=== PATIENT | female | born 2000 | race American Indian/Alaskan Native ===

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

== ENCOUNTER 2020-01-15 13:13 | Outpatient (CLI) | payer MEDICAID ==
[2020-01-15 13:49] VITALS: BP 103/54
[2020-01-15] MEDS ORDERED: LACTATED RINGERS 1,000 ML IV SCH (14:00)
[2020-01-15 14:12] LABS: Bilirubin,Urine NEG (Negative); Blood,Urine NEG (Negative); Color,Urine Yellow (Yellow); Mucus,Urine 2+ /HPF
[2020-01-15] MEDS ORDERED: LACTATED RINGERS 500 ML IV ONE (14:42)
[2020-01-15] MEDS ORDERED: TERBUTALINE 1 MG/1 ML INJ ONE (14:44)
[2020-01-15] MEDS: TERBUTALINE 1 MG/1 ML INJ SUB-Q SCH ×2 (14:48→15:13)
== END 2020-01-15 16:32 | disposition home or self-care (01) ==
LOC: TRG 13:13 → APU 13:14 → TRG 16:32
PROVIDERS: ATTEND Obstetrics & Gynecology
DX: O62.9 Abnormality of forces of labor, unspecified (principal); Z3A.30 30 weeks gestation of pregnancy
CPT/HCPCS: 59025; 81001; 87086; 96360; 96361; 96372; J3105; J7120; Q0177; 96369

== ENCOUNTER 2020-01-20 16:05 | Inpatient (IN) | payer MEDICAID ==
[2020-01-20] MEDS ORDERED: LACTATED RINGERS 500 ML IV ONE (17:00)
[2020-01-20 17:56] LABS: Bacteria,Urine 1+ /HPF (Negative); Bilirubin,Urine NEG (Negative); Blood,Urine NEG (Negative); Color,Urine Yellow (Yellow); Mucus,Urine FEW /HPF; Protein,Urine <15 mg/dL mg/dL (Negative); Urobilinogen,Urine < 2.0 mg/dL (<2.0)
[2020-01-20] MEDS ORDERED: LACTATED RINGERS 1,000 ML IV ONE (20:04)
[2020-01-20] MEDS ORDERED: NIFEdipine*For Tocolysis only* 10 MG CAPSULE PO ONE (20:19)
[2020-01-20] MEDS ORDERED: ONDANSETRON 4 MG/2 ML INJ IV PRN (20:46)
[2020-01-20] MEDS ORDERED: ACETAMINOPHEN 325 MG TAB PO PRN (20:46)
[2020-01-20] MEDS ORDERED: DOCUSATE SODIUM 100 MG CAP PO PRN (20:46)
[2020-01-20] MEDS ORDERED: MAGNESIUM SULFATE 4 GM/100 ML BAG IV ONE (20:55)
[2020-01-20] MEDS ORDERED: ZOLPIDEM 5 MG TAB PO PRN (20:58)
[2020-01-20] MEDS ORDERED: MAGNESIUM SULFATE 40GM/1000ML 40 GM/1,000 ML BAG IV SCH (21:00)
[2020-01-20] MEDS: BETAMET ACET/BETAMET NA PH 6 MG/ML INJ 5 ML MDV IM SCH (21:50)
[2020-01-20] MEDS: LACTATED RINGERS 1,000 ML IV SCH (22:33)
[2020-01-20] MEDS: fentaNYL 100 MCG/2 ML INJ IV PRN (22:55)
[2020-01-21 01:41] LABS: Basophils % (Auto) 0.1 % (0.0-1.8); Eosinophils % (Auto) 0.1 % (0.0-4.3); Hematocrit 30.9 % (30.3-42.9); Hemoglobin 10.2 gm/dl (10.1-14.3); Lymphocytes # (Auto) 1.2 K/mm3 (1.2-5.4); Lymphocytes % (Auto) 14.9 % (13.4-35.0); Mean Corpuscular HGB Conc 33 % (30-34); Mean Corpuscular Volume 91 fl (79-97); Monocytes # (Auto) 0.2 K/mm3 (0.0-0.8); Platelet Count 243 K/mm3 (140-440); Red Blood Count 3.39 M/mm3 (3.65-5.03); Red Cell Distribution Width 15.2 % (13.2-15.2)
[2020-01-21] MEDS: fentaNYL 100 MCG/2 ML INJ IV PRN ×3 (06:55→21:47)
--- NOTE | 2020-01-21 08:29 | History and Physical Report ---
History of Present Illness Date of examination: 01/21/20 Date of admission: 01/20/20 20:47 Chief complaint: Contractions History of present illness: 19-year-old -0-1-1 at 31+0 weeks who presents with a complaint of regular uterine contractions. The patient was evaluated in triage and had cervical change 2 cm. She was admitted for magnesium sulfate therapy and steroid treatment. The patient reports adverse reaction to terbutaline in the past and declined the use of the medication. She denies any leakage of fluid or any vaginal bleeding. Past History Past Medical History: no pertinent history Past Surgical History: no surgical history Social history: single - Obstetrical History Expected Date of Delivery: 03/24/20 Actual Gestation: 31 Week(s) 0 Day(s) : 3 Para: 1 Hx # Term Pregnancies: 1 Number of Pregnancies: 0 Spontaneous Abortions: 1 Induced : 0 Number of Living Children: 1 Medications and Allergies Allergies Allergy/AdvReac Type Severity Reaction Status Date / Time terbutaline AdvReac Hives Verified 01/20/20 18:25 Home Medications Medication Instructions Recorded Confirmed Last Taken Type Plus Tablet 1 tab PO DAILY 11/09/18 01/20/20 01/18/20 00:00 History Active Meds: Active Medications Acetaminophen (Tylenol) 650 mg PO Q4H PRN PRN Reason: Pain MILD(1-3)/Fever >100.5/PÉREZ Betamethasone Acet/Betameth SodPhos (Celestone Soluspan) 12 mg IM Q24H CHARMAINE Stop: 01/21/20 21:01 Last Admin: 01/20/20 21:50 Dose: 12 mg Documented by: Docusate Sodium (Colace) 100 mg PO Q12H PRN PRN Reason: Constipation Famotidine (Pepcid) 20 mg PO BID CHARMAINE Fentanyl (Sublimaze) 100 mcg IV Q2H PRN PRN Reason: Pain,Severe (7-10) LABOR PAIN Last Admin: 01/21/20 06:55 Dose: 100 mcg Documented by: Lactated Ringer's (Lactated Ringers) 1,000 mls @ 125 mls/hr IV DIRECT CHARMAINE Last Admin: 01/20/20 22:33 Dose: 75 mls/hr Documented by: Magnesium Sulfate (Magnesium Sulfate 40gm/1000ml) 40 gm in 1,000 mls @ 50 mls/hr IV DIRECT CHARMAINE Last Admin: 01/20/20 22:20 Dose: 2 gm/hr, 50 mls/hr Documented by: Multivitamins/Iron/Calcium ( Vitamin) 1 each PO QDAY [facility] Ondansetron HCl (Zofran) 4 mg IV Q6H PRN PRN Reason: Nausea And Vomiting Zolpidem Tartrate (Ambien) 5 mg PO QHS PRN PRN Reason: Sleep Review of Systems All systems: negative Genitourinary: pelvic pain, contractions, no vaginal bleeding, no leakage of fluid - Vital Signs Vital signs: Vital Signs Temp Pulse Resp BP Pulse Ox 98.8 F 72 18 104/61 100 01/20/20 17:50 01/20/20 17:50 01/20/20 17:50 01/20/20 17:50 01/20/20 17:50 Temp Pulse Resp BP Pulse Ox 97.8 F 74 18 115/59 100 01/21/20 04:04 01/21/20 07:03 01/20/20 17:50 01/21/20 07:03 01/21/20 05:41 - Physical Exam Breasts: Positive: deferred Cardiovascular: Regular rate Lungs: Positive: Clear to auscultation Abdomen: Positive: normal appearance - Obstetrical Cervical Dilatation: 2 Results Result Diagrams: 01/21/20 00:37 Abnormal lab results 01/20/20 01/21/20 01/21/20 Range/Units Unknown 00:37 05:48 RBC 3.39 L (3.65-5.03) M/mm3 Seg Neutrophils % 82.9 H (40.0-70.0) % Magnesium 5.40 H (1.7-2.3) mg/dL Urine pH 8.0 H (5.0-7.0) All other labs normal. Assessment and Plan - Patient Problems (1) labor Current Visit: Yes Status: Acute Plan to address problem: Complete magnesium sulfate therapy and steroid treatment Expectant management
[2020-01-21] MEDS: FAMOTIDINE 20 MG TAB PO SCH ×2 (11:17→21:53)
[2020-01-21] MEDS: PRENATAL VIT27-FE FUMARATE-FOLIC ACID VIT TAB PO SCH (11:17)
[2020-01-21] MEDS: BETAMET ACET/BETAMET NA PH 6 MG/ML INJ 5 ML MDV IM SCH (21:45)
[2020-01-22] MEDS: PRENATAL VIT27-FE FUMARATE-FOLIC ACID VIT TAB PO SCH (10:55)
[2020-01-22] MEDS: fentaNYL 100 MCG/2 ML INJ IV PRN (14:35)
[2020-01-22] MEDS: LACTATED RINGERS 1,000 ML IV SCH (14:35)
[2020-01-22] MEDS: FAMOTIDINE 20 MG TAB PO SCH ×2 (14:37→23:46)
--- NOTE | 2020-01-22 17:23 | Progress Note ---
Assessment and Plan A: IUP at 31w1d admitted for labor s/p two dose of betamethasone and magnesium sulfate for tocolysis and neuroprotection Cervix now 3 cm P: Continue observation off magnesium sulfate for further cervical progression. Discontinue IV pain medication Subjective - Subjective Date of service: 01/22/20 Principal diagnosis: IUP at 31w1d, labor Interval history: Pt continues to report contractions, irregularly. She continues to ask for fentanyl because she feels it stops her contractions. Patient reports: no new complaints Objective - Vital Signs Vital Signs: Vital Signs - 12hr 01/22/20 01/22/20 01/22/20 05:51 08:17 08:18 Pulse Rate 64 70 74 Blood Pressure 95/55 115/62 O2 Sat by Pulse 100 Oximetry 01/22/20 01/22/20 01/22/20 08:23 08:28 08:33 Pulse Rate 79 85 78 Blood Pressure O2 Sat by Pulse 100 100 92 Oximetry 01/22/20 01/22/20 01/22/20 08:38 08:43 08:46 Pulse Rate 72 72 75 Blood Pressure O2 Sat by Pulse 80 L 88 82 L Oximetry 01/22/20 01/22/20 01/22/20 08:48 08:53 08:58 Pulse Rate 85 81 77 Blood Pressure O2 Sat by Pulse 98 100 98 Oximetry 01/22/20 01/22/20 01/22/20 09:03 09:08 09:13 Pulse Rate 73 92 H 75 Blood Pressure O2 Sat by Pulse 100 100 100 Oximetry 01/22/20 01/22/20 01/22/20 09:18 09:23 09:28 Pulse Rate 84 80 85 Blood Pressure O2 Sat by Pulse 100 100 100 Oximetry 01/22/20 01/22/20 01/22/20 09:33 09:38 09:43 Pulse Rate 84 78 86 Blood Pressure O2 Sat by Pulse 100 100 100 Oximetry 01/22/20 01/22/20 01/22/20 09:48 09:53 09:56 Pulse Rate 76 83 83 Blood Pressure O2 Sat by Pulse 99 100 87 Oximetry 01/22/20 01/22/20 01/22/20 09:58 14:26 14:31 Pulse Rate 76 65 61 Blood Pressure O2 Sat by Pulse 100 99 100 Oximetry 01/22/20 01/22/20 01/22/20 14:36 14:41 14:46 Pulse Rate 59 L 58 L 87 Blood Pressure O2 Sat by Pulse 99 98 97 Oximetry 01/22/20 01/22/20 01/22/20 14:51 14:56 15:01 Pulse Rate 64 68 69 Blood Pressure O2 Sat by Pulse 99 98 100 Oximetry 01/22/20 01/22/20 01/22/20 15:06 15:11 16:53 Pulse Rate 53 L 63 60 Blood Pressure O2 Sat by Pulse 98 99 96 Oximetry 01/22/20 01/22/20 01/22/20 16:58 17:03 17:08 Pulse Rate 61 65 60 Blood Pressure O2 Sat by Pulse 100 100 99 Oximetry 01/22/20 01/22/20 17:13 17:18 Pulse Rate 57 L 54 L Blood Pressure O2 Sat by Pulse 99 100 Oximetry - Exam Breasts: deferred Abdomen: Present: soft (gravid ) Uterus: Present: normal FHR: auscultation normal Uterine Contraction Monitor Mode: External Cervical Dilatation: 3 Cervical Effacement Percentage: 50 station: -3 Uterine Contraction Pattern: Irregular Uterine Tone Measurement Phase: Resting Uterine Contraction Intensity: Mild Extremities: normal - Labs Labs: Abnormal Labs 01/20/20 01/21/20 01/21/20 Unknown 00:37 05:48 RBC 3.39 L Seg Neutrophils % 82.9 H Magnesium 5.40 H Urine pH 8.0 H Coronavirus (PCR) 01/21/20 01/21/20 09:17 12:00 RBC Seg Neutrophils % Magnesium 5.80 H Urine pH Coronavirus (PCR) Positive A
--- NOTE | 2020-01-23 07:34 | Progress Note ---
Assessment and Plan A: IUP at 31w2d admitted for labor s/p two dose of betamethasone and magnesium sulfate for tocolysis and neuroprotection Cervix now 3 cm Coronavirus positive P: Continue observation off magnesium sulfate for further cervical progression. Discontinue IV pain medication Subjective - Subjective Date of service: 01/23/20 Principal diagnosis: IUP at 31w2d, labor Interval history: Pt continues to feel irregular contractions. Patient reports: no new complaints Objective - Exam Breasts: deferred Abdomen: Present: soft (gravid ) Uterus: Present: normal (gravid ) FHR: auscultation normal Uterine Contraction Monitor Mode: External Cervical Dilatation: 3 Uterine Contraction Pattern: Irregular Uterine Tone Measurement Phase: Resting Uterine Contraction Intensity: Mild - Labs Labs: Abnormal Labs 01/20/20 01/21/20 01/21/20 Unknown 00:37 05:48 RBC 3.39 L Seg Neutrophils % 82.9 H Magnesium 5.40 H Urine pH 8.0 H Coronavirus (PCR) 01/21/20 01/21/20 09:17 12:00 RBC Seg Neutrophils % Magnesium 5.80 H Urine pH Coronavirus (PCR) Positive A
[2020-01-23 07:55] VITALS: BP 85/46
[2020-01-23] MEDS: PRENATAL VIT27-FE FUMARATE-FOLIC ACID VIT TAB PO SCH (09:57)
[2020-01-23] MEDS: FAMOTIDINE 20 MG TAB PO SCH (09:57)
--- NOTE | 2020-01-23 10:24 | Discharge Summary ---
Providers - Providers Date of Admission: 01/20/20 20:47 Date of discharge: 01/23/20 Attending physician: URIEL ALLEN Primary care physician: URIEL ALLEN Hospitalization Reason for admission: labor Procedure details: IV magnesium sulfate for neuroprotection and tocolysis Two doses of betamethasone Hospital course: Pt was admitted for labor and change to two centimeters. She received two doses of betamethasone and IV magnesium for tocolysis and neuroprotection. Through [facility] coronovirus screening, the patient was diagnosed with Coronavirus on 01/21/20. She changed to 2.5-3 cm and arrested there for over 12 hours without tocolytics. The patient had no cervical jacket changer 16 hours of observation. She met discharge criteria. She was given labor precautions and instructed to quarantine for a total of 14 days after diagnosis, and not to return ot the office until she has a negative coronavirus test. Condition at discharge: Stable Disposition: DC- TO HOME OR SELFCARE - Discharge Diagnoses (1) 2019 novel coronavirus detected Status: Acute (2) Status: Acute Qualifiers: Weeks of gestation: 31 weeks Qualified Code(s): Z3A.31 - 31 weeks gestation of (3) labor Status: Acute Qualifiers: labor trimester: third trimester labor delivery status: without delivery Qualified Code(s): O60.03 - labor without delivery, third trimester Plan - Provider Discharge Summary Activity: no sex for 6 weeks, no heavy lifting 4 weeks, no strenuous exercise Diet: routine Instructions: routine Additional instructions: [] Smoking cessation referral if applicable(refer to patient education folder for contact #) [] Refer to [facility]'s [facility] Booklet Call your doctor immediately for: * Fever > 100.5 * Heavy vaginal bleeding ( >1 pad per hour) * Severe persistent headache * Shortness of breath * Reddened, hot, painful area to leg or breast * Drainage or odor from incision. * Keep incision clean and dry at all times and follow doctor's instructions regarding bathing/showering - Follow up plan Follow up: URIEL ALLEN MD [Primary Care Provider] - 02/08/20 (please schedule an appt after February 04, 2020 after documenting a negative coronavirus test )
== END 2020-01-23 11:50 | disposition home or self-care (01) | DRG 781 ==
LOC: TRG 16:05 → APU 16:05 → TRG 20:46 → LD 20:47
PROVIDERS: ADMIT Obstetrics & Gynecology; ATTEND Obstetrics & Gynecology
DX: O98.513 Other viral diseases complicating pregnancy, third trimester (principal); O60.03 Preterm labor without delivery, third trimester; Z3A.31 31 weeks gestation of pregnancy; Z88.8 Allergy status to other drugs, medicaments and biological substances; Z53.29 Procedure and treatment not carried out because of patient's decision for other reasons; U07.1 COVID-19
CPT/HCPCS: 36415; 81001; 83735; 85025; 86592; 86850; 86900; 86901; G0378; J0702; J2405; J3010; J3475; J7120; U0003-CS

== ENCOUNTER 2020-02-05 08:52 | Outpatient (CLI) | payer MEDICAID ==
[2020-02-05 10:02] VITALS: BP 107/56
[2020-02-05] MEDS ORDERED: LACTATED RINGERS 500 ML IV ONE (10:02)
[2020-02-05 10:17] LABS: Bilirubin,Urine NEG (Negative); Blood,Urine NEG (Negative); Color,Urine Yellow (Yellow); Mucus,Urine FEW /HPF; Protein,Urine <15 mg/dL mg/dL (Negative); Urobilinogen,Urine < 2.0 mg/dL (<2.0)
--- NOTE | 2020-02-05 11:17 | Ultrasound Report ---
ULTRASOUND OBSTETRIC LIMITED INDICATION / CLINICAL INFORMATION: cathy. TECHNIQUE: Transabdominal ultrasound imaging. COMPARISON: None available. FINDINGS: HEART RATE (beats per minute): 144 AMNIOTIC FLUID INDEX (cm) = 8.4 PRESENTATION: Cephalic. ADDITIONAL FINDINGS: None. IMPRESSION: CATHY measures 8.4 cm Signer Name: Jacky Michel Jr, MD Signed: 02/05/2020 11:12 AM Workstation Name: [id number]
== END 2020-02-05 12:07 | disposition home or self-care (01) ==
LOC: TRG 08:52 → APU 09:11 → TRG 12:07
PROVIDERS: ATTEND Obstetrics & Gynecology
DX: O62.9 Abnormality of forces of labor, unspecified (principal); Z3A.33 33 weeks gestation of pregnancy
CPT/HCPCS: 59025; 76815; 81001; 96360; 96361

== ENCOUNTER 2020-02-07 05:27 | Inpatient (IN) | payer MEDICAID ==
[2020-02-07] MEDS ORDERED: LACTATED RINGERS 1,000 ML ONE (05:37)
[2020-02-07] MEDS ORDERED: BETAMET ACET/BETAMET NA PH 6 MG/ML INJ 5 ML MDV IM ONE (05:42)
[2020-02-07] MEDS ORDERED: AMPICILLIN/NS 2 GM/100 ML 2 GM/100 ML BAG IV ONE ×3 (05:42→06:00)
[2020-02-07] MEDS ORDERED: AMPICILLIN 2 GM in SODIUM CHLORIDE 0.9% 50 ML IV ONE (05:49)
[2020-02-07] MEDS ORDERED: fentaNYL 100 MCG/2 ML INJ IV PRN (05:59)
[2020-02-07] MEDS ORDERED: TERBUTALINE 1 MG/1 ML INJ SUB-Q PRN (05:59)
[2020-02-07] MEDS ORDERED: ONDANSETRON 4 MG/2 ML INJ IV PRN ×3 (05:59→10:14)
[2020-02-07] MEDS ORDERED: NALOXONE 0.4 MG/1 ML INJ IV PRN (05:59)
[2020-02-07] MEDS ORDERED: BUTORPHANOL 2 MG/1 ML INJ IV PRN (05:59)
[2020-02-07] MEDS ORDERED: ePHEDrine SULFATE 50 MG/1 ML INJ IV PRN ×2 (05:59→07:32)
[2020-02-07] MEDS ORDERED: MINERAL OIL 30 ML ORAL LIQD PO PRN (05:59)
[2020-02-07] MEDS ORDERED: LIDOCAINE (2%) 20 MG/1 ML VIAL 20 ML MDV INFILTRATI ONE (05:59)
[2020-02-07] MEDS ORDERED: ACETAMINOPHEN 325 MG TAB PO PRN ×2 (05:59→10:14)
[2020-02-07] MEDS ORDERED: OXYTOCIN DRIP 30 UNITS/500 ML BAG IV SCH (06:00)
[2020-02-07] MEDS ORDERED: OXYTOCIN 20 UNIT/1000ML DRIP 20 UNITS/1,000 ML BAG IV SCH ×2 (06:00→10:14)
[2020-02-07] MEDS ORDERED: BETAMET ACET/BETAMET NA PH 6 MG/ML INJ 5 ML MDV IM SCH (06:00)
[2020-02-07] MEDS ORDERED: LACTATED RINGERS 1,000 ML IV SCH ×2 (06:00)
[2020-02-07] MEDS ORDERED: MAGNESIUM SULFATE 4 GM/100 ML BAG IV ONE (06:02)
[2020-02-07] MEDS ORDERED: MAGNESIUM SULFATE 2 GM/50 ML BAG IV ONE (06:02)
[2020-02-07] MEDS ORDERED: MAGNESIUM SULFATE 40GM/1000ML 0 GM/0 ML BAG IV ONE (06:05)
--- NOTE | 2020-02-07 06:30 | History and Physical Report ---
History of Present Illness Date of examination: 02/07/20 Date of admission: 02/07/20 05:37 Chief complaint: my water broke, contractions History of present illness: Pt is a 19 year old JESU 03/24/20 at 33w3d who presents with rupture of membranes at 4:30 this morning and regular painful contractions. Her cervix was noted to be 4/90/-2 on admission. She has had limited care at [facility] since 20 wks consisting of two visits (one in November and one in January) complicated by labor s/p admission with arrest at 2.5-3 cm and s/p two doses of betamethasone and magnesium sulfate for tocolysis and neuroprotection at that time. She was also diagnosed with Coronavirus on 01/21/20, but she has been asymptomatic throughout. Her GBS status is unknown. She also tested positive for gonorrhea, chlamydia and trichomonas on 09/02/19 and treated in November 2019 without test of cure. Past History Past Medical History: no pertinent history Past Surgical History: no surgical history AUTOMOTIVE WINDOW TINTER History: chlamydia (treated 11/10), gonorrhea (treated 11/10), herpes, trichomonas (treated 11/10 ) Family/Genetic History: none Social history: no significant social history - Obstetrical History Expected Date of Delivery: 03/24/20 Actual Gestation: 33 Week(s) 3 Day(s) : 3 Para: 1 Hx # Term Pregnancies: 1 Number of Pregnancies: 0 Spontaneous Abortions: 1 Induced : 0 Number of Living Children: 1 Medications and Allergies Allergies Allergy/AdvReac Type Severity Reaction Status Date / Time terbutaline AdvReac Hives Unverified 02/07/20 05:38 Home Medications Medication Instructions Recorded Confirmed Last Taken Type Plus Tablet 1 tab PO DAILY 11/09/18 02/07/20 01/18/20 00:00 History Active Meds: Active Medications Acetaminophen (Tylenol) 650 mg PO Q4H PRN PRN Reason: Pain, Mild (1-3) Betamethasone Acet/Betameth SodPhos (Celestone Soluspan) 12 mg IM Q24H CHARMAINE Stop: 02/08/20 06:01 Last Admin: 02/07/20 06:11 Dose: 12 mg Documented by: Butorphanol Tartrate (Stadol) 2 mg IV Q2H PRN PRN Reason: Pain , Severe (7-10) Ephedrine Sulfate (Ephedrine Sulfate) 10 mg IV Q2M PRN PRN Reason: Hypotension Fentanyl (Sublimaze) 100 mcg IV Q2H PRN PRN Reason: Pain,Severe (7-10) LABOR PAIN Last Admin: 02/07/20 06:15 Dose: 100 mcg Documented by: Lactated Ringer's (Lactated Ringers) 1,000 mls @ 125 mls/hr IV DIRECT CHARMAINE Last Admin: 02/07/20 06:14 Dose: 125 mls/hr Documented by: Oxytocin/Sodium Chloride (Pitocin/Ns 30 Unit/500ml) 30 units in 500 mls @ 2 mls/hr IV TITR CHARMAINE; Protocol Lactated Ringer's (Lactated Ringers) 1,000 mls @ 125 mls/hr IV DIRECT CHARMAINE Oxytocin/Sodium Chloride (Pitocin/Ns 20 Unit/1000ml Drip) 20 units in 1,000 mls @ 125 mls/hr IV DIRECT CHARMAINE Ampicillin Sodium (Ampicillin/Ns 1 Gm/50 Ml) 1 gm in 50 mls @ 100 mls/hr IV Q4HR CHARMAINE; Protocol Magnesium Sulfate (Magnesium Sulfate 2gm/50ml) 2 gm in 50 mls @ 25 mls/hr IV ONCE ONE Stop: 02/07/20 08:01 Mineral Oil (Mineral Oil) 30 ml PO QHS PRN PRN Reason: Constipation Naloxone HCl (Naloxone) 0.1 mg IV Q2MIN PRN PRN Reason: Res Rate </= 8 or 02 SAT < 92% Ondansetron HCl (Zofran) 4 mg IV Q8H PRN PRN Reason: Nausea And Vomiting Review of Systems All systems: negative - Vital Signs Vital signs: Vital Signs Pulse BP Pulse Ox 106 H 115/71 99 02/07/20 05:33 02/07/20 05:33 02/07/20 05:33 Temp Pulse Resp BP Pulse Ox 98.5 F 81 18 115/71 100 02/07/20 05:36 02/07/20 06:28 02/07/20 06:15 02/07/20 05:36 02/07/20 06:28 - Physical Exam Breasts: Positive: deferred Abdomen: Positive: soft (gravid ) Genitourinary (Female): Positive: normal external genitalia Uterus: Positive: enlarged (gravid ) - Obstetrical FHR: auscultation normal Uterine Contraction Monitor Mode: External Cervical Dilatation: 4.5 Cervical Effacement Percentage: 90 station: -2 Uterine Contraction Pattern: Regular Uterine Tone Measurement Phase: Resting Uterine Contraction Intensity: Strong/Firm Results Result Diagrams: 02/07/20 Unknown All other labs normal. 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
[2020-02-07 06:53] LABS: Hematocrit 33.1 % (30.3-42.9); Mean Corpuscular HGB Conc 33 % (30-34); Mean Corpuscular Volume 92 fl (79-97); Platelet Count 253 K/mm3 (140-440); Red Cell Distribution Width 15.7 % (13.2-15.2)
[2020-02-07] MEDS ORDERED: NalbUPHINE 10 MG/1 ML INJ IV PRN (07:32)
--- NOTE | 2020-02-07 07:34 | Anesthesia Consultation ---
Anesthesia Consult and Med Hx Date of service: 02/07/20 - Airway Anesthetic Teeth Evaluation: Good ROM Head & Neck: Adequate Mental/Hyoid Distance: Adequate Mallampati Class: Class I Intubation Access Assessment: Good - Pulmonary Exam CTA: Yes - Cardiac Exam Cardiac Exam: RRR - Pre-Operative Health Status ASA Pre-Surgery Classification: ASA2 Proposed Anesthetic Plan: Epidural - Pulmonary Hx Smoking: No Hx Asthma: No COPD: No Hx Pneumonia: No Hx Sleep Apnea: No - Cardiovascular System Hx Hypertension: No - Central Nervous System Hx Seizures: No Hx Psychiatric Problems: No - Gastrointestinal Hx Gastroesophageal Reflux Disease: No - Endocrine Hx Renal Disease: No Hx End Stage Renal Disease: No Hx Hypothyroidism: No Hx Hyperthyroidism: No - Hematic Hx Anemia: No Hx Sickle Cell Disease: No - Other Systems Hx Alcohol Use: No
--- NOTE | 2020-02-07 07:35 | Progress Note ---
Labor Epidural - Labor Epidural Start Time: 07:15 Stop Time: 07:30 Performed by:: MILADYS GONZALEZ Procedure: Patient is requesting a laboring epidural for laboring pain. Patient IDed, H&P reviewed, all questions and concerns were answered, and consent was signed. Timeout was performed at bedside. Patient in sitting position. Sterile prep and drape was performed. 3ml of 1% lidocaine skin wheal at L[3]- L [4]. 18- gauge Touhy epidural needle was advanced to loss of resistance with air technique. Negative CSF negative blood. Epidural catheter advanced to [12] centimeters. [-] Aspiration [-] test dose. Sterile dressing applied. Patient tolerated procedure.
[2020-02-07] MEDS ORDERED: METHYLERGONOVINE MALEATE 0.2 MG/ML VIAL IM ONE ×2 (07:48)
[2020-02-07] MEDS ORDERED: fentaNYL-BUPIV 2 MCG/ML-0.125% 200 MCG/100 ML BAG EPIDURAL SCH (08:00)
[2020-02-07] MEDS ORDERED: diphenhydrAMINE 50 MG/ML VIAL IV PRN (08:00)
--- NOTE | 2020-02-07 08:44 | Procedure Note ---
OB Delivery Note - Delivery Date of Delivery: 02/07/20 Surgeon: SHANNON BURROWS Estimated blood loss: 500cc - Vaginal Delivery presentation: vertex Delivery position: OA Intrapartum events: labor-<37 weeks, PROM->1hr before delivery, decreased FHT variability, mult.variable deceleratio, uterine atony (s/p Metherigine ) Delivery induction: none Delivery monitor: external FHT, external uterine Route of delivery: Delivery placenta: spontaneous Episiotomy: none Delivery laceration: none Anesthesia: epidural - Infant A at 1 minute: 8 at 5 minutes: 9 Infant Gender: Male (1809g (4lb 0oz) @ 0736 am)
[2020-02-07] MEDS ORDERED: AMPICILLIN/NS 1 GM/50 ML 1 GM/50 ML BAG IV SCH (10:01)
[2020-02-07] MEDS: HYDROcodone/ACETAMINOPHEN 5-325 MG TAB PO PRN ×2 (10:34→18:10)
[2020-02-07] MEDS: IBUPROFEN 600 MG TAB PO SCH ×3 (10:42→23:32)
[2020-02-07] MEDS ORDERED: BENZOCAINE/MENTHOL 20/0.5% TOP SPRAY 56 GM TP PRN (11:00)
[2020-02-07] MEDS ORDERED: diphenhydrAMINE 50 MG/ML VIAL IV ONE (11:00)
[2020-02-07] MEDS ORDERED: PROMETHAZINE 25 MG TAB PO PRN (11:30)
[2020-02-07] MEDS ORDERED: LANOLIN/ZINC/DIMETHICONE (LANSINOH) 7 GM TP PRN ×2 (11:30)
[2020-02-07] MEDS ORDERED: WITCH HAZEL/ GLYCERIN PAD TP PRN (11:30)
[2020-02-07] MEDS ORDERED: PROMETHAZINE 25 MG RECT SUPP PR PRN (11:30)
[2020-02-07] MEDS: FERROUS SULFATE 325 MG TAB PO SCH ×2 (12:30→23:32)
--- NOTE | 2020-02-07 13:37 | Post Anesthesia Evaluation ---
- Post Anesthesia Evaluation Patient Participated: Yes Airway Patent: Yes Stable Respiratory Function: Yes Nausea/Vomiting: No Temp > 96.8F: Yes Pain Manageable: Yes Adequeate Hydration: Yes Anesthesia Complications: No Block Receding Appropriately: Yes Patient on Ventilator: No Other Comments: Pt c/o itching, likely d/t IV narcotics she may have received from the nursing staff since she never received any epidural fentanyl. Pt's RN advised to treat with benadryl.
[2020-02-07] MEDS: diphenhydrAMINE 25 MG CAP PO PRN ×2 (16:08→23:32)
[2020-02-07 21:51] LABS: Hematocrit 28.3 % (30.3-42.9); Hemoglobin 9.4 gm/dl (10.1-14.3)
[2020-02-07] MEDS ORDERED: MAGNESIUM HYDROXIDE (MOM) ORAL LIQD UDC PO PRN (22:00)
[2020-02-08] MEDS: IBUPROFEN 600 MG TAB PO SCH ×4 (05:00→23:38)
--- NOTE | 2020-02-08 08:23 | Progress Note ---
Assessment and Plan A: PPD#1 s/p at 33 wks H/o Coronavirus on 01/21/20 without repeat test P: Coronavirus test today Routine care Subjective - Subjective Date of service: 02/08/20 Principal diagnosis: s/p at 33 wks Interval history: Pt feeling better today. Desires Coronavirus testing today. Patient reports: appetite normal, voiding normally, pain well controlled, ambulating normally [place]: in NICU Objective - Vital Signs Latest vital signs: Vital Signs Temp Pulse Resp BP Pulse Ox 02/08/20 05:05 98.5 F 83 98 02/08/20 05:02 18 98/59 02/07/20 23:35 97.8 F 68 18 110/43 98 02/07/20 19:48 98.4 F 60 18 102/53 98 02/07/20 16:06 98.3 F 69 20 101/56 98 02/07/20 09:40 98.1 F 64 20 111/65 100 02/07/20 08:45 81 94 02/07/20 08:44 72 91 02/07/20 08:40 74 100 02/07/20 08:35 70 100 02/07/20 08:31 82 116/72 02/07/20 08:30 78 99 02/07/20 08:25 77 98 Intake and Output 02/07/20 02/08/20 02/08/20 22:59 06:59 14:59 Intake Total 320 150 Balance 320 150 Intake: Intake, Free Water 320 150 Other: # Voids Void 1 1 - Exam Breasts: Present: deferred Abdomen: Present: soft Uterus: Present: fundal height at umbilicus Extremities: Present: normal - Labs Labs: Abnormal lab results 02/07/20 Range/Units 21:26 Hgb 9.4 L (10.1-14.3) gm/dl Hct 28.3 L (30.3-42.9) %
[2020-02-08] MEDS ORDERED: MEASLES, MUMPS & RUBELLA 12,500 UNIT/0.5 ML VACCINE SUB-Q ONE (09:05)
[2020-02-08] MEDS ORDERED: DIPHtheria,PERTUSSIS(ACELL),TETANUS VACCINE/PF 0.5 ML VIAL IM ONE (09:05)
[2020-02-08] MEDS: FERROUS SULFATE 325 MG TAB PO SCH ×2 (12:18→23:38)
[2020-02-08] MEDS: HYDROcodone/ACETAMINOPHEN 5-325 MG TAB PO PRN (17:29)
[2020-02-08] MEDS: diphenhydrAMINE 25 MG CAP PO PRN (22:48)
[2020-02-09] MEDS: HYDROcodone/ACETAMINOPHEN 5-325 MG TAB PO PRN (01:52)
[2020-02-09] MEDS: IBUPROFEN 600 MG TAB PO SCH ×2 (06:49→12:22)
--- NOTE | 2020-02-09 08:10 | Progress Note ---
Assessment and Plan A: PPD1 s/p PTD @ 33wks. H&H ordered. P:Discharge today pending H&H results . Subjective - Subjective Date of service: 02/09/20 Principal diagnosis: s/p at 33 wks Interval history: PPD2 s/p PTD @ 33wks. Pt has no complaints. Requesting to go home today. Patient reports: appetite normal : in NICU Objective - Vital Signs Latest vital signs: Vital Signs Temp Pulse Resp BP Pulse Ox 02/09/20 01:34 97.8 F 80 20 103/65 99 02/08/20 15:46 97.7 F 96 H 20 104/53 97 02/08/20 08:17 98.0 F 61 16 96/49 99 Intake and Output 02/08/20 02/09/20 02/09/20 23:59 07:59 15:59 Intake Total 240 Balance 240 Intake: Oral 240 Other: Total, Intake Amount 240 # Voids Void 1 - Exam Breasts: Present: deferred Abdomen: Present: normal appearance Uterus: Present: firm, fundal height below umbilicus
--- NOTE | 2020-02-09 08:13 | Discharge Summary ---
Providers - Providers Date of Admission: 02/07/20 05:37 Date of discharge: 02/09/20 Attending physician: SHANNON BURROWS 02/07/20 10:14 Consult to Reshipping Clerk [CONS] Routine Reason For Exam: assistance with , SNS Primary care physician: SHANNON BURROWS Hospitalization Reason for admission: active labor () Delivery: Episiotomy: none Laceration: none Other procedures: none Discharge diagnosis: delivery [place] baby: male Condition at discharge: Good Disposition: DC-01 TO HOME OR SELFCARE Plan - Discharge Medications Prescriptions: Ferrous Sulfate [Feosol 325 MG tab] 325 mg PO BID #60 tablet Ibuprofen [Motrin] 800 mg PO Q8HR PRN #30 tablet PRN Reason: Pain, Moderate (4-6) HYDROcodone/APAP 5-325 [[place] 5/325] 1 each PO Q6HR PRN #20 tablet PRN Reason: Pain - Provider Discharge Summary Activity: no sex for 6 weeks, no heavy lifting 4 weeks, no strenuous exercise Diet: routine Instructions: routine Additional instructions: [] Smoking cessation referral if applicable(refer to patient education folder for contact #) [] Refer to [facility]'s [facility] Booklet Call your doctor immediately for: * Fever > 100.5 * Heavy vaginal bleeding ( >1 pad per hour) * Severe persistent headache * Shortness of breath * Reddened, hot, painful area to leg or breast * Drainage or odor from incision. * Keep incision clean and dry at all times and follow doctor's instructions regarding bathing/showering - Follow up plan Follow up: SHANNON BURROWS MD [Primary Care Provider] - 14 Days
[2020-02-09] MEDS: FERROUS SULFATE 325 MG TAB PO SCH (12:21)
[2020-02-09 12:31] VITALS: BP 117/75
== END 2020-02-09 13:00 | disposition home or self-care (01) | DRG 774 ==
LOC: TRG 05:27 → LD 05:28 → TRG 05:35 → LD 05:37 → OB 09:32
PROVIDERS: ADMIT Obstetrics & Gynecology; ATTEND Obstetrics & Gynecology
PROC: 10E0XZZ Delivery of Products of Conception, External Approach (ICD-10-PCS; principal; 2020-02-06)
PROC: 3E0R3BZ Introduction of Anesthetic Agent into Spinal Canal, Percutaneous Approach (ICD-10-PCS; 2020-02-07)
PROC: 00HU33Z Insertion of Infusion Device into Spinal Canal, Percutaneous Approach (ICD-10-PCS; 2020-02-07)
PROC: 3E0234Z Introduction of Serum, Toxoid and Vaccine into Muscle, Percutaneous Approach (ICD-10-PCS; 2020-02-08)
PROC: 3E0134Z Introduction of Serum, Toxoid and Vaccine into Subcutaneous Tissue, Percutaneous Approach (ICD-10-PCS; 2020-02-08)
DX: O60.14X0 Preterm labor third trimester with preterm delivery third trimester, not applicable or unspecified (principal); O98.32 Other infections with a predominantly sexual mode of transmission complicating childbirth; O62.9 Abnormality of forces of labor, unspecified; Z37.0 Single live birth; Z3A.33 33 weeks gestation of pregnancy; Z20.828 Contact with and (suspected) exposure to other viral communicable diseases; A60.09 Herpesviral infection of other urogenital tract
CPT/HCPCS: 36415; 85014; 85018; 85027; 86592; 86850; 86900; 86901; 88307; G0378; J0290; J0702; J1200; J2210; J3010; J3475; J7120; U0003-CS

== ENCOUNTER 2021-03-04 23:17 | Outpatient (CLI) | payer MEDICAID ==
[2021-03-04 23:50] VITALS: BP 110/62
[2021-03-05] MEDS ORDERED: LACTATED RINGERS 1,000 ML IV ONE
[2021-03-05 00:23] LABS: Bacteria,Urine 2+ /HPF (Negative); Mucus,Urine FEW /HPF
[2021-03-05 00:39] LABS: Bilirubin,Urine NEG (Negative); Blood,Urine NEG (Negative); Color,Urine Yellow (Yellow)
[2021-03-05] MEDS ORDERED: metroNIDAZOLE 500 MG TAB PO ONE (01:47)
== END 2021-03-05 01:30 | disposition home or self-care (01) ==
LOC: TRG 23:17 → APU 23:25 → TRG 03-05 01:30
PROVIDERS: ATTEND Obstetrics & Gynecology
DX: Z34.93 Encounter for supervision of normal pregnancy, unspecified, third trimester (principal); Z3A.35 35 weeks gestation of pregnancy
CPT/HCPCS: 36415; 59025; 81001; 84112; 96360; J7120

== ENCOUNTER 2021-03-18 13:31 | Inpatient (IN) | payer MEDICAID ==
[2021-03-18] MEDS ORDERED: LACTATED RINGERS 1,000 ML ONE (14:35)
[2021-03-18] MEDS ORDERED: LACTATED RINGERS 1,000 ML IV ONE (14:51)
[2021-03-18] MEDS ORDERED: ePHEDrine SULFATE 50 MG/1 ML INJ IV PRN ×2 (17:18→18:08)
[2021-03-18] MEDS ORDERED: fentaNYL 100 MCG/2 ML INJ IV PRN (17:18)
[2021-03-18] MEDS ORDERED: OXYTOCIN 10 UNIT/1 ML INJ IM PRN (17:18)
[2021-03-18] MEDS ORDERED: ACETAMINOPHEN 325 MG TAB PO PRN (17:18)
[2021-03-18] MEDS ORDERED: CARBOPROST TROMETHAMINE 250 MCG/1 ML INJ IM PRN (17:18)
[2021-03-18] MEDS ORDERED: METHYLERGONOVINE MALEATE 0.2 MG/ML VIAL IM PRN (17:18)
[2021-03-18] MEDS ORDERED: miSOPROStol 200 MCG TAB PR PRN (17:18)
[2021-03-18] MEDS ORDERED: LOPERAMIDE 2 MG CAP PO PRN (17:18)
[2021-03-18] MEDS ORDERED: MINERAL OIL 30 ML ORAL LIQD PO PRN (17:18)
[2021-03-18] MEDS ORDERED: BUTORPHANOL 2 MG/1 ML INJ IV PRN (17:18)
[2021-03-18 17:33] LABS: Hemoglobin 7.7 gm/dl (10.1-14.3); Mean Corpuscular HGB Conc 32 % (30-34); Mean Corpuscular Volume 77 fl (79-97); Platelet Count 169 K/mm3 (140-440); Red Blood Count 3.12 M/mm3 (3.65-5.03)
[2021-03-18] MEDS: LACTATED RINGERS 1,000 ML IV SCH ×2 (17:43→19:59)
[2021-03-18] MEDS ORDERED: LIDOCAINE (2%) 20 MG/1 ML VIAL 20 ML MDV INFILTRATI ONE (17:45)
[2021-03-18] MEDS ORDERED: OXYTOCIN DRIP 30 UNITS/500 ML BAG IV SCH ×2 (18:00)
[2021-03-18] MEDS ORDERED: AMPICILLIN/NS 2 GM/100 ML 2 GM/100 ML BAG IV ONE (18:00)
[2021-03-18] MEDS ORDERED: NALOXONE 2 MG/2 ML INJ IV PRN (18:08)
--- NOTE | 2021-03-18 18:08 | Anesthesia Consultation ---
Anesthesia Consult and Med Hx Date of service: 03/18/21 - Airway Anesthetic Teeth Evaluation: Good ROM Head & Neck: Adequate Mental/Hyoid Distance: Adequate Mallampati Class: Class II Intubation Access Assessment: Good - Pulmonary Exam CTA: Yes - Cardiac Exam Cardiac Exam: RRR - Pre-Operative Health Status ASA Pre-Surgery Classification: ASA2 Proposed Anesthetic Plan: Epidural - Pulmonary Hx Smoking: No Hx Asthma: No Hx Respiratory Symptoms: No SOB: No COPD: No Home Oxygen Therapy: No Hx Pneumonia: No Hx Sleep Apnea: No - Cardiovascular System Hx Hypertension: No Hx Coronary Artery Disease: No Hx Heart Attack/AMI: No Hx Angina: No Hx Percutaneous Transluminal Coronary Angioplasty (PTCA): No Hx Cardia Arrhythmia: No Hx Pacemaker: No Hx Internal Defibrillator: No Hx Valvular Heart Disease: No Hx Heart Murmur: No Hx Peripheral Vascular Disease: No - Central Nervous System Hx Neuromuscular Disorder: No Hx Seizures: No CVA: No Hx Back Pain: Yes Hx Psychiatric Problems: No - Gastrointestinal Hx Ulcer: No Hx Gastroesophageal Reflux Disease: No - Endocrine Hx Renal Disease: No Hx End Stage Renal Disease: No Hx Cirrhosis: No Hx Liver Disease: No Hx Insulin Dependent Diabetes: No Hx Non-Insulin Dependent Diabetes: No Hx Thyroid Disease: No Hx Hypothyroidism: No Hx Hyperthyroidism: No - Hematic Hx Anemia: No Hx Sickle Cell Disease: No - Other Systems Hx Alcohol Use: No Hx Substance Use: No Hx Cancer: No Hx Obesity: No
--- NOTE | 2021-03-18 19:05 | Progress Note ---
Labor Epidural - Labor Epidural Start Time: 18:18 Stop Time: 18:28 Performed by:: JIL BRITO Procedure: Patient is requesting a laboring epidural for laboring pain. Patient IDed, H&P reviewed, all questions and concerns were answered, and consent was signed. Timeout was performed at bedside. Patient in sitting position. Sterile prep and drape was performed. [3] ml of 1% lidocaine skin wheal at L[3]- L [4]. 18- gauge Touhy epidural needle was advanced to loss of resistance with air technique to 6cm. Negative CSF negative blood via Tuohy needle. #27g Spinal needle clear, free flowing CSF, Pecedex 10 mcg. Epidural catheter advanced to [10] centimeters. [negative] Aspiration [negative] test dose. Sterile dressing applied. Patient tolerated procedure.
[2021-03-18] MEDS: fentaNYL-BUPIV 2 MCG/ML-0.125% 200 MCG/100 ML BAG EPIDURAL SCH (20:00)
--- NOTE | 2021-03-18 20:05 | History and Physical Report ---
History of Present Illness Date of examination: 03/18/21 Date of admission: 03/18/21 13:32 Chief complaint: I'm having contractions History of present illness: Pt is a 20 year old who presents at 37.3 weeks with regular contractions. Pt receives care with [facility]. records are not available for review. Pt had cervical change in triage from 2 to 4 cm with regular contractions and the decision was made to admit for labor.Her GBS is un known. Past History Past Medical History: no pertinent history Past Surgical History: no surgical history Social history: single - Obstetrical History Expected Date of Delivery: 04/04/21 Actual Gestation: 37 Week(s) 5 Day(s) : 4 Para: 2 Number of Living Children: 2 Medications and Allergies Allergies Allergy/AdvReac Type Severity Reaction Status Date / Time terbutaline Allergy Severe Hives Verified 02/07/20 10:38 Home Medications Medication Instructions Recorded Confirmed Last Taken Type Plus Tablet 1 tab PO DAILY 11/09/18 03/18/21 01/18/20 00:00 History Ferrous Sulfate [Feosol 325 MG tab] 325 mg PO BID #60 tablet 02/08/20 03/18/21 Unknown Rx Active Meds: Active Medications Acetaminophen (Acetaminophen 325 Mg Tab) 650 mg PO Q4H PRN PRN Reason: Pain, Mild (1-3) Butorphanol Tartrate (Butorphanol 2 Mg/1 Ml Inj) 2 mg IV Q2H PRN PRN Reason: Pain , Severe (7-10) Carboprost Tromethamine (Carboprost Tromethamine 250 Mcg/1 Ml Inj) 250 mcg IM ONCE PRN PRN Reason: Uterine Bleeding Ephedrine Sulfate (Ephedrine Sulfate 50 Mg/1 Ml Inj) 10 mg IV Q2M PRN PRN Reason: Hypotension Last Admin: 03/18/21 19:03 Dose: 10 mg Documented by: Ephedrine Sulfate (Ephedrine Sulfate 50 Mg/1 Ml Inj) 10 mg IV Q2M PRN PRN Reason: Hypotension Fentanyl (Fentanyl 100 Mcg/2 Ml Inj) 100 mcg IV Q2H PRN PRN Reason: Pain,Severe (7-10) LABOR PAIN Oxytocin/Sodium Chloride (Pitocin/Ns 30 Unit/500ml) 30 units in 500 mls @ 2 mls/hr IV TITR CHARMAINE; Protocol Lactated Ringer's (Lactated Ringers) 1,000 mls @ 125 mls/hr IV DIRECT CHARMAINE Last Admin: 03/18/21 17:43 Dose: 125 mls/hr Documented by: Oxytocin/Sodium Chloride (Pitocin/Ns 30 Unit/500ml) 30 units in 500 mls @ 40 mls/hr IV TITR CHARMAINE; Protocol Fentanyl/Bupivacaine/Sodium Chlor (Fentanyl-Bupiv 2 Mcg/Ml-0.125%) 200 mcg in 100 mls @ 12 mls/hr EPIDURAL TITR CHARMAINE; Protocol Loperamide HCl (Loperamide 2 Mg Cap) 2 mg PO ONCE PRN PRN Reason: give with Hemabate Methylergonovine Maleate (Methylergonovine Maleate 0.2 Mg/Ml Vial) 0.2 mg IM ONCE PRN PRN Reason: Uterine Bleeding Mineral Oil (Mineral Oil 30 Ml Oral Liqd) 30 ml PO QHS PRN PRN Reason: Constipation Misoprostol (Misoprostol 200 Mcg Tab) 800 mcg SD ONCE PRN PRN Reason: Uterine Bleeding Naloxone HCl (Naloxone 2 Mg/2 Ml Inj) 0.2 mg IV Q5M PRN PRN Reason: Respiratory sedation Oxytocin (Oxytocin 10 Unit/1 Ml Inj) 10 unit IM ONCE PRN PRN Reason: Uterine Bleeding Review of Systems All systems: negative Genitourinary: pelvic pain, contractions Rectal Exam: deferred - Vital Signs Vital signs: Vital Signs Pulse Pulse Ox 104 H 98 03/18/21 13:50 03/18/21 13:50 Temp Pulse Resp BP Pulse Ox 98.7 F 85 20 93/51 99 03/18/21 17:15 03/18/21 20:02 03/18/21 17:15 03/18/21 20:02 03/18/21 20:00 - Physical Exam Breasts: Positive: deferred Cardiovascular: Regular rate, Normal S1, Normal S2 Lungs: Positive: Clear to auscultation, Normal air movement Abdomen: Positive: normal appearance, soft, normal bowel sounds Genitourinary (Female): Positive: normal external genitalia, normal perenium Vagina: Positive: normal moisture Uterus: Positive: enlarged Extremities: Positive: normal - Obstetrical FHR: auscultation normal Cervical Dilatation: 4 Cervical Effacement Percentage: 50 station: -3 Uterine Contraction Pattern: Irregular Uterine Tone Measurement Phase: Contraction Uterine Contraction Intensity: Moderate Results Result Diagrams: 11/13/21 17:20 Abnormal lab results 03/18/21 Range/Units 17:20 WBC 11.4 H (4.5-11.0) K/mm3 RBC 3.12 L (3.65-5.03) M/mm3 Hgb 7.7 L (10.1-14.3) gm/dl Hct 24.0 L (30.3-42.9) % MCV 77 L (79-97) fl MCH 25 L (28-32) pg RDW 17.0 H (13.2-15.2) % All other labs normal. Assessment and Plan IUP at 37.4 weeks in active labor. Admit for labor management. Treat with ampicillin for unknown GBS. Pt may have epidural. Anticipate .
[2021-03-18] MEDS ORDERED: AMPICILLIN 1 GM in SODIUM CHLORIDE 0.9% 50 ML IV SCH (22:00)
[2021-03-18] MEDS: AMPICILLIN/NS 1 GM/50 ML 1 GM/50 ML BAG IV SCH (22:35)
[2021-03-19] MEDS: AMPICILLIN/NS 1 GM/50 ML 1 GM/50 ML BAG IV SCH ×2 (02:17→06:20)
[2021-03-19] MEDS: fentaNYL-BUPIV 2 MCG/ML-0.125% 200 MCG/100 ML BAG EPIDURAL SCH (03:47)
[2021-03-19] MEDS: LACTATED RINGERS 1,000 ML IV SCH (07:01)
--- NOTE | 2021-03-19 10:21 | Procedure Note ---
OB Delivery Note - Delivery Date of Delivery: 03/19/21 [employer] [place]: RODRIGO HARDING Estimated blood loss: other (400ml) - Vaginal Delivery presentation: vertex Delivery position: OA Intrapartum events: none Delivery induction: oxytocin Delivery monitor: external FHT, external uterine Route of delivery: Delivery placenta: spontaneous Episiotomy: none Delivery laceration: none Anesthesia: epidural Delivery comments: of female over intact perineum. to mother's abdomen for skin to skin. Cord clamped. Cut by FOC. Spontaneous delivery of placenta, intact, completed, 3 vessels noted. Some brisk bleeding noted after delivery of placenta. Stopped with Methergine and Pitocin. Fundus firm after Methergine and Pitocin administration. Perineum and vaginal inspected, no lacerations noted. Instruments and sponges counted X 2 with RN and correct X 2. Infant weight 6-12, Apgars 8,9. QBL 400ml. and mother left in stable condition in care of RN. - A at 1 minute: 8 at 5 minutes: 9 (Weight 6-12) Infant Gender: Female
[2021-03-19] MEDS ORDERED: ONDANSETRON 4 MG/2 ML INJ ONE ×2 (11:59→13:25)
[2021-03-19 12:44] LABS: Red Blood Count 4.07 M/mm3 (3.65-5.03)
[2021-03-19 12:45] LABS: Hematocrit 32.3 % (30.3-42.9); Mean Corpuscular HGB Conc 31 % (30-34); Mean Corpuscular Volume 80 fl (79-97); Platelet Count 203 K/mm3 (140-440)
--- NOTE | 2021-03-19 13:39 | Post Anesthesia Evaluation ---
- Post Anesthesia Evaluation Patient Participated: Yes Airway Patent: Yes Stable Respiratory Function: Yes Nausea/Vomiting: No Temp > 96.8F: Yes Pain Manageable: Yes Adequeate Hydration: Yes Anesthesia Complications: No Block Receding Appropriately: Yes Patient on Ventilator: No
[2021-03-19] MEDS ORDERED: LANOLIN/ZINC/DIMETHICONE (LANSINOH) 7 GM TP PRN (13:57)
[2021-03-19] MEDS ORDERED: WITCH HAZEL/ GLYCERIN PAD TP PRN (13:57)
[2021-03-19] MEDS ORDERED: ONDANSETRON 4 MG/2 ML INJ IV PRN (13:57)
[2021-03-19] MEDS ORDERED: diphenhydrAMINE 25 MG CAP PO PRN (13:57)
[2021-03-19] MEDS ORDERED: PROMETHAZINE 25 MG RECT SUPP PR PRN (13:57)
[2021-03-19] MEDS ORDERED: MAGNESIUM HYDROXIDE (MOM) ORAL LIQD UDC PO PRN (13:57)
[2021-03-19] MEDS ORDERED: PROMETHAZINE 25 MG TAB PO PRN (13:57)
[2021-03-19] MEDS: IBUPROFEN 600 MG TAB PO SCH ×2 (15:10→21:30)
[2021-03-19] MEDS: HYDROcodone/ACETAMINOPHEN 5-325 MG TAB PO PRN (18:09)
[2021-03-19] MEDS: FERROUS SULFATE 325 MG TAB PO SCH (21:30)
[2021-03-20] MEDS: HYDROcodone/ACETAMINOPHEN 5-325 MG TAB PO PRN (00:45)
[2021-03-20] MEDS: IBUPROFEN 600 MG TAB PO SCH ×2 (03:00→14:42)
--- NOTE | 2021-03-20 07:39 | Progress Note ---
Assessment and Plan A: PPD#1 s/p at term P: Routine care Draw no care labs Discharge today per pt request Subjective - Subjective Date of service: 03/20/21 Principal diagnosis: s/p at term Interval history: Pt without complaints. No visits noted in 2020 after review of charts. Patient reports: appetite normal, voiding normally, pain well controlled, ambulating normally [place]: doing well Objective - Vital Signs Latest vital signs: Vital Signs Temp Pulse Resp BP BP Pulse Ox Pulse Ox 03/20/21 03:00 16 03/20/21 01:45 18 03/20/21 00:45 18 03/20/21 00:33 97.8 F 82 18 107/63 99 03/19/21 22:30 18 03/19/21 21:30 18 03/19/21 20:30 100 03/19/21 19:09 18 03/19/21 18:30 98.6 F 03/19/21 17:40 98 03/19/21 16:54 99 F 91 H 20 109/44 98 03/19/21 15:21 98 03/19/21 14:07 100 F H 92 H 20 125/81 98 03/19/21 13:48 98 03/19/21 12:45 80 119/69 03/19/21 12:30 78 129/82 03/19/21 12:15 102 H 117/58 03/19/21 12:10 55 L 0 L 03/19/21 11:50 74 100 03/19/21 11:45 72 119/68 100 03/19/21 11:40 77 100 03/19/21 11:35 79 100 03/19/21 11:30 85 120/60 100 03/19/21 11:25 78 100 03/19/21 11:20 73 100 03/19/21 11:16 80 127/76 03/19/21 11:15 45 L 100 03/19/21 11:10 84 100 03/19/21 11:08 82 110/60 03/19/21 11:07 68 82 L 03/19/21 11:05 84 100 03/19/21 11:00 99 H 100 03/19/21 10:55 82 98 03/19/21 10:45 68 117/79 03/19/21 10:42 115 H 94 03/19/21 10:36 73 113/75 03/19/21 10:15 72 115/58 03/19/21 10:00 99.1 F 83 19 105/65 03/19/21 09:46 70 96 03/19/21 09:45 92 H 121/70 03/19/21 09:41 97 H 98 03/19/21 09:40 91 H 82 L 03/19/21 09:36 110 H 98 03/19/21 09:35 104 H 87 03/19/21 09:31 92 H 99 03/19/21 09:16 103 H 117/71 03/19/21 09:01 81 101/57 03/19/21 08:45 83 105/56 03/19/21 08:30 84 100/57 03/19/21 08:16 79 117/67 03/19/21 08:00 98.1 F 88 20 99/56 03/19/21 07:55 90 100 03/19/21 07:50 83 99 03/19/21 07:47 88 69/54 03/19/21 07:45 82 99 03/19/21 07:40 80 99 Intake and Output 03/19/21 03/20/21 03/20/21 22:59 06:59 14:59 Intake Total 680 360 Output Total 1550 Balance -870 360 Intake: Oral 680 120 Intake, Free Water 240 Output: Urine 1550 Void 1550 Other: Total, Intake Amount 480 120 Total, Output Amount 500 # Voids Void 2 1 - Exam Breasts: Present: deferred Abdomen: Present: soft Uterus: Present: fundal height at umbilicus Extremities: Present: normal - Labs Labs: Abnormal lab results 03/19/21 Range/Units 12:17 WBC 15.6 H (4.5-11.0) K/mm3 Hgb 10.0 L (10.1-14.3) gm/dl MCH 25 L (28-32) pg RDW 17.0 H (13.2-15.2) %
--- NOTE | 2021-03-20 07:41 | Discharge Summary ---
Providers - Providers Date of Admission: 03/18/21 13:32 Date of discharge: 03/20/21 Attending physician: URIEL ALLEN Primary care physician: URIEL ALLEN Hospitalization Reason for admission: active labor Delivery: Procedure details: Please see delivery note Episiotomy: none Laceration: none Other procedures: none complications: none Discharge diagnosis: IUP at term delivered [place] baby: female Hospital course: Patient was admitted in active labor and went on to have a spontaneous vaginal delivery which she tolerated well. She declined routine coronavirus testing during this hospitalization. She reports care [facility] but there are no visits documented in 2020 at this time. In office review of re cords will be performed. On day #1 she met discharge criteria. She will follow-up in the office in in 4 weeks for her exam. Condition at discharge: Stable Disposition: 01 HOME / SELF CARE / HOMELESS - Discharge Diagnoses (1) Insufficient care in third trimester Status: Acute (2) Term of female Status: Acute (3) Active labor at term Status: Acute Plan - Discharge Medications Prescriptions: Ibuprofen [Motrin] 800 mg PO Q8HR PRN #30 tablet PRN Reason: Pain, Moderate (4-6) - Provider Discharge Summary Activity: routine, no sex for 6 weeks, no heavy lifting 4 weeks, no strenuous exercise Diet: routine Instructions: routine Additional instructions: [] Smoking cessation referral if applicable(refer to patient education folder for contact #) [] Refer to [facility]'s [facility] Booklet Call your doctor immediately for: * Fever > 100.5 * Heavy vaginal bleeding ( >1 pad per hour) * Severe persistent headache * Shortness of breath * Reddened, hot, painful area to leg or breast * Drainage or odor from incision. * Keep incision clean and dry at all times and follow doctor's instructions regarding bathing/showering - Follow up plan Follow up: RAJAN SEN STRATE[employer]IC COMMUNICATIONS SPECIALIST [Advanced Practice Nurse] - 04/24/21 (Please call to schedule your exam) Forms: [facility] Discharge Summary, Discharge Signature Page
[2021-03-20 09:13] LABS: Hematocrit 23.1 % (30.3-42.9); Hemoglobin 7.5 gm/dl (10.1-14.3)
[2021-03-20] MEDS: FERROUS SULFATE 325 MG TAB PO SCH ×2 (09:20→14:41)
[2021-03-20 10:34] VITALS: BP 100/66
[2021-03-20 14:58] LABS: Hepatitis C Virus Antibody Non-Reactive (NonReactive)
[2021-03-20 15:21] LABS: Amphetamine Screen,Urine Negative; Benzodiazepines Screen,Urine Negative; Cannabinoid Screen,Urine Negative; Methadone Screen,Urine Negative; Opiate Screen,Urine Negative
[2021-03-20 15:33] LABS: Cocaine Screen,Urine Positive
== END 2021-03-20 17:00 | disposition home or self-care (01) | DRG 775 ==
LOC: LD 13:31 → TRG 13:31 → APU 13:32 → LD 13:32 → TRG 17:47 → OB 03-19 13:14
PROVIDERS: ADMIT Obstetrics & Gynecology; ATTEND Obstetrics & Gynecology
PROC: 10E0XZZ Delivery of Products of Conception, External Approach (ICD-10-PCS; principal; 2021-03-19)
PROC: 3E033VJ Introduction of Other Hormone into Peripheral Vein, Percutaneous Approach (ICD-10-PCS; 2021-03-19)
PROC: 3E0R3BZ Introduction of Anesthetic Agent into Spinal Canal, Percutaneous Approach (ICD-10-PCS; 2021-03-19)
PROC: 00HU33Z Insertion of Infusion Device into Spinal Canal, Percutaneous Approach (ICD-10-PCS; 2021-03-19)
DX: O80 Encounter for full-term uncomplicated delivery (principal); Z3A.37 37 weeks gestation of pregnancy; Z37.0 Single live birth; Z88.8 Allergy status to other drugs, medicaments and biological substances
CPT/HCPCS: 36415; 80307; 85014; 85018; 85027; 86592; 86706; 86762; 86803; 86850; 86900; 86901; 87806; G0378; J3490; J0290; J2210; J2405; J2590; J7120; U0003